=== PATIENT | female | born 1975 | race Two or more races ===

== ENCOUNTER → 2017-07-31 | Outpatient (CLI) | payer BC ==
--- NOTE | 2017-07-31 11:48 | MM ---
Reason for exam: additional evaluation requested from prior study. Last mammogram was performed 3 years and 9 months ago. History: Benign US right guided VAD of the left breast, June 18, 2011. Physical Findings: Nurse did not find any significant physical abnormalities on exam. MG Diagnostic Mammo w CAD PING Bilateral CC and MLO view(s) were taken. Prior study comparison: November 04, 2013, CAD bilateral diagnostic mammogram. July 28, 2012, bilateral screening mammogram free. The breast tissue is heterogeneously dense. This may lower the sensitivity of mammography. There is a mass in the central upper left breast unchanged compared to prior with a biopsy marker. No suspicious abnormality. No significant new findings when compared with previous films. These results were verbally communicated with the patient and result sheet given to the patient on 07/31/17. ASSESSMENT: Benign, BI-RAD 2 RECOMMENDATION: Routine screening mammogram of both breasts in 1 year.
== END ==
LOC: RADMAMWWP 10:27
PROVIDERS: ATTEND Family Medicine
DX: N60.89 Other benign mammary dysplasias of unspecified breast (principal)

== ENCOUNTER → 2019-04-04 | Outpatient (CLI) | payer BC ==
--- NOTE | 2019-04-04 13:54 | MM ---
Reason for exam: screening (asymptomatic). Last mammogram was performed 1 year and 8 months ago. History: Benign US right guided VAD of the left breast, June 18, 2011. Physical Findings: A clinical breast exam by your physician is recommended on an annual basis and results should be correlated with mammographic findings. MG Screening Mammo w CAD Bilateral CC and MLO view(s) were taken. Prior study comparison: July 31, 2017, bilateral MG diagnostic mammo w CAD PING. November 04, 2013, CAD bilateral diagnostic mammogram. The breast tissue is heterogeneously dense. This may lower the sensitivity of mammography. Previous mammotome biopsy in the left breast. There is chronic nodularity in the left breast. There is no discrete abnormality. ASSESSMENT: Benign, BI-RAD 2 RECOMMENDATION: Routine screening mammogram of both breasts in 1 year.
== END | disposition home or self-care (01) ==
LOC: RADMAMWWP 11:41
PROVIDERS: ATTEND Family Medicine
DX: Z12.31 Encounter for screening mammogram for malignant neoplasm of breast (principal)
CPT/HCPCS: 77067

== ENCOUNTER → 2019-04-19 | Outpatient (CLI) | payer BC ==
--- NOTE | 2019-04-20 14:30 | P.ARTDOP ---
Arterial Doppler LOWER EXTREMITY ARTERIAL DOPPLER: DATE OF SERVICE: 04/19/2019 Reason for study: Intermittent leg pain bilaterally. Doppler waveforms: Multiphasic bilaterally throughout. Pulse volume recording: []. Pressure gradients: None. Ankle-brachial indices: Greater than 1 bilaterally. Toe pressures: [] on the right, [] on the left Impression: Normal study.
== END | disposition home or self-care (01) ==
LOC: RADUSWWP 14:18
PROVIDERS: ATTEND Family Medicine
DX: M79.605 Pain in left leg (principal)
CPT/HCPCS: 93922

== ENCOUNTER → 2021-08-20 | Outpatient (CLI) | payer OTHER ==
--- NOTE | 2021-08-20 15:39 | CONS ---
CONSULTATION REASON FOR CONSULTATION: Sleep apnea. This is a 46-year-old female patient who is coming in with a high suspicion for obstructive sleep apnea. The patient thinks that she has it, knowing that she is snoring loudly and has been told that by family members, and she would also wake up choking and gasping for air. Note that this patient was evaluated in the past and she was in our sleep center back in 2012. At that time the patient was diagnosed having no major sleep breathing disorder. A polysomnogram that was done on 09/21/2013 showed an AHI of 0.2. No significant nocturnal oxygen desaturations. No significant sleep arousals or fragmentation. No periodic limb movement activity. The patient underwent a second-day MSLT and the patient had a mean sleep latency of 3.8 minutes with zero REM- onset sleep. At that time she was offered no treatment. Over the past 8 years, she has gained a significant amount of weight, probably on the order of 22 pounds. Currently she is up to 215. 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 She feels like she has to take a short nap prior to dinner to get herself refreshed. She has excessive fatigue and sleepiness. She wakes up choking and gasping for air. She goes to bed between 10:30 p.m. and 11:30 p.m. and wakes up at 6:15 a.m. in the morning. On weekends she sleeps between midnight and 7:00 in the morning. She is averaging around 7 hours of sleep. It takes her a few minutes to fall asleep. She wakes up a few times in the middle of the night to use the bathroom and urinate. She sleeps on her side and she is a nose breather. She is interested in CPAP therapy if diagnosis of sleep apnea is confirmed. PAST MEDICAL HISTORY: Obesity with interval weight gain. BMI is up to 42. SURGICAL HISTORY: Surgical history includes tubal ligation and cholecystectomy. DRUG ALLERGIES: NOT KNOWN. SOCIAL HISTORY: The patient is a lifetime nonsmoker. No history of alcoholism. No history of IV drugs. She drinks one cup of coffee in the morning. FAMILY HISTORY: Positive for coronary artery disease, hypertension, hyperlipidemia, asthma and diabetes mellitus. Her father of complications of diabetes mellitus and he was hypertensive and had diabetes. Her mother has MARLO, diabetes mellitus, hyperlipidemia, Parkinson's disease and history of tremors. REVIEW OF SYSTEMS: Fourteen-point review of system was done. Positive findings were all mentioned in the history of present illness. Her main issue remains increased fatigue, tiredness and sleepiness during the day. On today's evaluation it was noted that her blood pressure was quite high. She denies having any headaches, chest pain, dizziness, numbness or tingling in her extremities. PHYSICAL EXAMINATION: VITAL SIGNS: BP is 161/102. This needs to be rechecked at home, knowing that it may be an abnormal reading, as the cuff was not fitting her arm. Pulse 70, respirations 16, temperature 97.4, saturation 99% on room air. Height is 4 feet 11 inches, weight 215, BMI 42.6. Neck size is 15-1/2 inches. Dutton score is 6. GENERAL APPEARANCE: Calm, comfortable. HEAD: Atraumatic, normocephalic. Neck is supple. No JVD. No goiter or neck masses. Mallampati class IV. LUNGS: Clear to auscultation. Heart sounds are regular rate and rhythm. Normal S1, S2. No S3, S4. No murmurs. ABDOMEN: Soft, nontender. No organomegaly. No direct tenderness, rebound tenderness or guarding. EXTREMITIES: Trace edema. No cyanosis or clubbing. IMPRESSION: 1. Chronic hypersomnia, under investigation. Previous evaluation that was done in 2012 showed no evidence of any sleep breathing disorder. Nevertheless, the patient continues to have an elevated Dutton score. Her mean sleep latency test that was done back in 2012 showed a short mean sleep latency of 1.8 minutes with negative REM-onset sleep. As such, she has gained around 22 pounds over the past 8 years and she is coming in for reevaluation. My overall clinical suspicion for obstructive sleep apnea is high, as the patient has become much more symptomatic. 2. Obesity with a BMI of 42.6 and interval 22-pound weight gain over the past 8 years. 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 PLAN: 1. Encourage weight loss. The patient was asked to get involved in a strict diet in an attempt to lose some of the weight that she has accumulated over the years. 2. Avoid driving, especially when feeling drowsy or sleepy. 3. Daytime stimulation with some caffeine. 4. Will proceed with a polysomnogram with a high clinical suspicion for underlying obstructive sleep apnea. Further recommendations are to follow based on the results. It was noted that the blood pressure was elevated today in the clinic. I asked the patient to re-measure the blood pressure at her doctor's office or at home and confirm the findings. She thinks that this was an erroneous reading. This is something that we need to follow up in the future. MMODL / IJN: [id number] /
== END ==
LOC: SLEEP 14:07
PROVIDERS: ATTEND Internal Medicine Critical Care Medicine
DX: G47.8 Other sleep disorders (principal); E66.9 Obesity, unspecified; Z68.41 Body mass index [BMI] 40.0-44.9, adult
CPT/HCPCS: 99211

== ENCOUNTER 2021-09-23 00:41 | Emergency (ER) | payer OTHER ==
--- NOTE | 2021-09-23 01:27 | XR ---
EXAMINATION TYPE: XR KUB DATE OF EXAM: 09/23/2021 COMPARISON: NONE HISTORY: Constipation TECHNIQUE: 2 views FINDINGS: Bowel gas pattern is normal. There is no sign of intestinal obstruction or pneumoperitoneum . Fecal pattern is normal. There are clips from cholecystectomy. There is no evidence of a mass. Ther e are no pathologic calcifications over the kidneys. IMPRESSION: Nonacute abdomen.
--- NOTE | 2021-09-23 01:46 | ED ---
Abdominal Pain HPI - General Chief Complaint: Abdominal Pain Stated Complaint: constipation Time Seen by Provider: 09/23/21 00:55 Source: patient Mode of arrival: ambulatory Limitations: no limitations - History of Present Illness Initial Comments: 46 year-old female patient comes in with complaint of rectal pain and constipation. States her last bowel movement was early yesterday. She states it was small and hard. States she feels like her rectum is full and she is unable to evacuate her bowels. States she has had some liquid stool but no solid. She is passing gas. Denies any abdominal pain. States all of her pain is in her rectal area. States she is urinating without difficulty. Denies any fever or chills. She was started on a new blood pressure medication but no other new medications. Does not take any pain medication. Has not changed her diet. - Related Data Home Medications Medication Instructions Recorded Confirmed Diclofenac Sodium [Voltaren] 25 mg PO BID 10/05/14 10/05/14 Oxybutynin Chloride [Ditropan] 5 mg PO BID 10/05/14 10/05/14 Allergies Allergy/AdvReac Type Severity Reaction Status Date / Time No Known Allergies Allergy Verified 09/23/21 00:52 Review of Systems ROS Statement: Those systems with pertinent positive or pertinent negative responses have been documented in the HPI. ROS Other: All systems not noted in ROS Statement are negative. Past Medical History Additional Past Medical History / Comment(s): arthritis, bladder inicontinence History of Any Multi-Drug Resistant Organisms: None Reported Past Surgical History: Cholecystectomy, Tubal Ligation Past Psychological History: No Psychological Hx Reported Smoking Status: Never smoker Past Alcohol Use History: None Reported Past Drug Use History: None Reported General Exam Limitations: no limitations General appearance: alert, in no apparent distress, other (This is a well- developed, well-nourished adult female in no acute distress.) ENT exam: Present: normal exam, normal oropharynx, mucous membranes moist Respiratory exam: Present: normal lung sounds bilaterally. Absent: respiratory distress, wheezes, rales, rhonchi, stridor Cardiovascular Exam: Present: regular rate, normal rhythm, normal heart sounds. Absent: systolic murmur, diastolic murmur, rubs, gallop, clicks GI/Abdominal exam: Present: soft, normal bowel sounds. Absent: distended, tenderness, guarding, rebound, rigid Neurological exam: Present: alert, oriented X3, CN II-XII intact Psychiatric exam: Present: normal affect, normal mood Skin exam: Present: warm, dry, intact, normal color. Absent: rash Course Vital Signs 09/23/21 00:50 Temperature 98.3 F Pulse Rate 93 Respiratory 20 Rate Blood Pressure 166/82 O2 Sat by Pulse 97 Oximetry Medical Decision Making - Medical Decision Making 46 year-old female patient presents to the emergency department reporting constipation and rectal pain. Physical exam revealed soft non-tender abdomen. KUB did show fecal burden. No obstruction. Patient was given milk and molasses enema. She did have large bowel movement. Upon re-evaluation she is resting comfortably in bed. She states she does feel much better. She feels comfortable being discharged home. She is instructed to follow-up with her primary care physician for recheck in 1-2 days. Return parameters were discussed in detail. She verbalizes understanding and agrees with this plan. My attending is Dr. Jones. - Radiology Data Radiology results: report reviewed, image reviewed 2 views of the abdomen are obtained. Report was reviewed in its entirety. Impression by Dr. Mcfarland shows nonacute abdomen. Disposition Clinical Impression: Rectal pain Disposition: HOME SELF-CARE Condition: Good Instructions (If sedation given, give patient instructions): Constipation (ED), High Fiber Diet (ED) Additional Instructions: Increase fluids. Follow-up with your primary care physician for recheck in 1-2 days. Return for any new, worsening, or concerning symptoms. Is patient prescribed a controlled substance at d/c from ED?: No Referrals: Mary Marks MD [Primary Care Provider] - 1-2 days Time of Disposition: 02:39
[2021-09-23 02:50] VITALS: BP 142/84; PULSE 87; RESP 18; TEMP 98.2
== END 2021-09-23 02:50 | disposition home or self-care (01) ==
LOC: EC 00:41
DX: K62.89 Other specified diseases of anus and rectum (principal); Z90.49 Acquired absence of other specified parts of digestive tract; Z98.51 Tubal ligation status
CPT/HCPCS: 74018; 99283

== ENCOUNTER → 2023-01-08 | Outpatient (CLI) | payer BC ==
--- NOTE | 2023-01-08 14:03 | US ---
EXAMINATION TYPE: US abdomen complete DATE OF EXAM: 01/08/2023 COMPARISON: NONE CLINICAL HISTORY: 47-year-old female R10.31 RLQ PAIN. Hx cholecystectomy. RLQ pain. TECHNIQUE: Multiple sonographic images of the abdomen are obtained. FINDINGS: EXAM MEASUREMENTS: Liver Length: 17.8 cm Gallbladder: Surgically absent CBD: 0.42 cm Spleen: 10.0 cm Right Kidney: 11.3 x 5.4 x 4.4 cm Left Kidney: 12.1 x 5.2 x 5.8 cm PIPE OR STEAM FITTER FURNACE INSTALLER NOTES: Limited due to gas and patient body habitus. Pancreas: Only portions of the pancreatic head and neck are seen. Remainder is obscured by bowel gas shadowing. Liver: Limited. Borderline enlarged with increased echogenicity. No focal lesion identified. Gallbladder: Surgically absent Evidence for sonographic Murrell's sign: No CBD: Portions seen appear wnl Spleen: wnl Right Kidney: Mild pelviectasis. Left Kidney: No hydronephrosis or masses seen Upper IVC: wnl Abd Aorta: Very limited. Mid aorta not seen. Portions of proximal aorta appear ectatic measuring 2.7 cm AP. Iliacs were obscured. IMPRESSION: 1. Borderline hepatomegaly with at least moderate hepatic steatosis. Correlate with LFTs, liver naomi col, and patient risk factors. 2. Status post cholecystectomy. No biliary ductal dilatation. 3. Mild right-sided pelviectasis versus extrarenal pelvis. No calyceal dilatation to suggest hydronep hrosis. 4. Segments of ectasia of the abdominal aorta to 2.7 cm.
--- NOTE | 2023-01-08 15:23 | US ---
EXAMINATION TYPE: US pelvic complete DATE OF EXAM: 01/08/2023 COMPARISON: NONE CLINICAL HISTORY: 47-year-old female R10.31 RLQ PAIN. RLQ pain. Hx tubal ligation. . TECHNIQUE: Transabdominal sonographic images of the pelvis were acquired. Transvaginal sonographic i mages were medically necessary to better assess the following anatomy: Ovaries, endometrium Date of LMP: 12/11/2022 FINDINGS: EXAM MEASUREMENTS: Uterus: 8.7 x 5.7 x 3.4 cm Endometrial Stripe: Measured at 0.33 cm Right Ovary: 2.3 x 1.5 x 1.1 cm Left Ovary: Obscured 1. Uterus: Anteverted. Very heterogeneous myometrium. Limited. Anechoic area seen anteriorly deep along the myometrium: 0.6 x 0.6 x 0.3 cm. 2. Endometrium: Somewhat indistinct. Measured at 0.33 cm. 3. Right Ovary: Hyperechoic focus seen: 0.2 x 0.2 x 0.1 cm., Nonspecific calcification 4. Left Ovary: Obscured 5. Bilateral Adnexa: Appear wnl 6. Posterior cul-de-sac: Trace free fluid IMPRESSION: 1. Heterogeneous myometrium. There is a small 6 mm anterior myometrial cyst also present. Findings ar e nonspecific but may be seen with adenomyosis. Clinically correlate. 2. Unable to visualize the left ovary. 3. Trace cul-de-sac free fluid likely physiologic.
== END | disposition home or self-care (01) ==
LOC: RADUSWWP 09:52
PROVIDERS: ATTEND Family Medicine
DX: K76.0 Fatty (change of) liver, not elsewhere classified (principal); I77.811 Abdominal aortic ectasia; N85.8 Other specified noninflammatory disorders of uterus; Z98.51 Tubal ligation status; Z90.49 Acquired absence of other specified parts of digestive tract
CPT/HCPCS: 76700; 76830; 76856

== ENCOUNTER → 2023-02-19 | Outpatient (CLI) | payer BC ==
--- NOTE | 2023-02-19 17:38 | P.SLEEP ---
History of Present Illness DATE: 02/19/2023 CONSULTATION/NEW PATIENT EVALUATION HISTORY OF PRESENT ILLNESS/SLEEP-WAKE EVALUATION: 47-year-old lady had been ev aluated in the sleep center for possible obstructive sleep apnea hypopnea syndrome. Mild abnormalities of respiration by results of home sleep apnea test in 2020. SLEEP SCHEDULE: Usually sleep schedule from 10 PM to 4 AM on weekdays and from 11 PM to 9 AM on weekend. FALLING ASLEEP: No problems with falling asleep, although patient has TV set and bedroom. DURING SLEEP: Patient wakes up from sleep up to 3 times with up to 2 episodes of nocturia. Patient snores, has episodes of stop breathing during the sleep. No history of hypnogogical hallucinations, sleep paralysis, or cataplexy. DURING THE DAY/WAKE STATE: In the morning patient wake up tired, has problems with memory, concentration, irritability. Andrews sleepiness scale is significantly increased to 16. Patient may take naps at 5 PM. PAST MEDICAL HISTORY: Hypertension, acid reflux, osteoarthritis. PAST SURGICAL HISTORY: Cholecystectomy, tubal ligation. MEDICATIONS: Losartan 75 mg once a day, omeprazole 20 mg twice a day, baclofen 10 mg once a day, diclofenac 75 mg twice a day. SOCIAL HISTORY: Negative for smoking or using alcohol. FAMILY HISTORY: Hypertension, coronary artery disease, asthma, diabetes. REVIEW OF SYSTEMS: Snoring, multiple awakenings from sleep, sleepiness during the day. No fevers. No double vision. No recent chest pain. No shortness of breath. No abdominal pain. No bleeding episodes. No blood in urine. No seizure episodes. PHYSICAL EXAMINATION: GENERAL: A pleasant patient without any distress. VITAL SIGNS: BP 141/83, HR 87, RR 12, weight 219 pounds, height 4 foot 11 inches, body mass index 44.6. HEENT: PERRLA, EOMI. Evaluation of oropharynx showed tongue protrudes midline, low position of soft palate Mallampati 3-4. NECK: Supple. No JVD. Thyroid is not palpable. 15.5 inches in circumference. LUNGS: Clear to percussion and to auscultation. Good air exchange. No wheezing or rhonchi. HEART: S1, S2 regular. No murmurs, gallops or rubs. ABDOMEN: Soft and nontender. Bowel sounds are present. No organomegaly appreciated. EXTREMITIES: No clubbing or cyanosis. END STAPLER: Awake, alert, and oriented x3. Cranial nerves 2 to 7 intact. There is no fasciculation or atrophy noted. No focal deficits observed. ASSESSMENT: 1. Loud snoring, witnessed episodes of stop breathing during sleep, low position of soft palate Mallampati 34, significant sleepiness Andrews Sleepiness Scale is 16. Obstructive sleep apnea hypopnea syndrome. 2. History of significant excessive daytime sleepiness documented in 2013 by multiple sleep latency test. Mean sleep latency 3.8 minutes. Presently Andrews Sleepiness Scale is 16. Differential diagnosis would include narcolepsy and hypersomnia. 3. Obesity body mass index 44.6. 4. Hypertension. 5 acid reflux. 6 . Osteoarthritis. 7. Status post cholecystectomy. 8. Status post tubal ligation. PLAN: 1. Polysomnography for evaluation of patient's breathing during sleep. 2. CPAP/BiPAP titration if sleep study confirms obstructive sleep apnea- hypopnea syndrome. 3. Preferable position during sleep on the side. 4. No driving if patient feels any sleepiness. Patient is aware of civil and criminal liability for unsafe driving. 5. Sleep hygiene with regular sleep time for at least 7.5-8 hours. 6. Watching and losing weight. Thank you very much for referring this patient for consultation. Sincerely, Juvencio Milton MD, PhD, FAASM. Diplomat of [place] [employer], Sleep Medicine Board by [employer] [employer] [employer] [facility] [place] Past Medical History Additional Past Medical History / Comment(s): arthritis, bladder inicontinence History of Any Multi-Drug Resistant Organisms: None Reported Past Surgical History: Cholecystectomy, Tubal Ligation Past Psychological History: No Psychological Hx Reported Smoking Status: Never smoker Past Alcohol Use History: None Reported Past Drug Use History: None Reported Medications and Allergies Home Medications Medication Instructions Recorded Confirmed Type Diclofenac Sodium [Voltaren] 25 mg PO BID 10/05/14 10/05/14 History Oxybutynin Chloride [Ditropan] 5 mg PO BID 10/05/14 10/05/14 History Allergies Allergy/AdvReac Type Severity Reaction Status Date / Time No Known Allergies Allergy Verified 09/23/21 00:52 Sleep Note - Sleep Note Sleep Note: Temperature: Pulse Rate: Respiratory Rate: Blood Pressure: SpO2: Height: Weight: BMI: Neck Circumference:
== END ==
LOC: SLEEP 14:57
PROVIDERS: ATTEND Internal Medicine
DX: G47.33 Obstructive sleep apnea (adult) (pediatric) (principal); G47.419 Narcolepsy without cataplexy; E66.9 Obesity, unspecified; Z68.41 Body mass index [BMI] 40.0-44.9, adult; K21.9 Gastro-esophageal reflux disease without esophagitis; M19.90 Unspecified osteoarthritis, unspecified site; Z98.890 Other specified postprocedural states; I10 Essential (primary) hypertension; Z99.89 Dependence on other enabling machines and devices
CPT/HCPCS: 99211

== ENCOUNTER 2023-03-25 19:42 | Outpatient (CLI) | payer BC | END 2023-03-26 23:59 | LOC: 3 N SLEEP 19:42 | PROVIDERS: ATTEND Internal Medicine | DX: G47.33 Obstructive sleep apnea (adult) (pediatric) (principal); I10 Essential (primary) hypertension; K21.9 Gastro-esophageal reflux disease without esophagitis; M19.90 Unspecified osteoarthritis, unspecified site; E66.9 Obesity, unspecified; Z68.41 Body mass index [BMI] 40.0-44.9, adult; Z98.890 Other specified postprocedural states; Z99.89 Dependence on other enabling machines and devices | CPT/HCPCS: 95810 ==

== ENCOUNTER → 2023-12-15 | Outpatient (CLI) | payer OTHER ==
--- NOTE | 2023-12-15 17:35 | XR ---
EXAMINATION TYPE: XR knee limited LT DATE OF EXAM: 12/15/2023 5:06 PM CLINICAL INDICATION:Female, 48 years old with history of [id number]; COMPARISON: None. TECHNIQUE: XR knee limited LT; examined in Frontal, lateral and oblique projections. FINDINGS: No evidence of any acute osseous pathology, soft tissue swelling, or joint effusion is no milind. Tricompartmental osteophyte formation involving the femoral condyles, tibial plateau and patella . Mild joint space narrowing. IMPRESSION: 1. No acute osseous pathology. 2. Mild tricompartmental osteoarthritic changes.
== END | disposition home or self-care (01) ==
LOC: RADXRMAIN 16:10
PROVIDERS: ATTEND Nurse Practitioner Family
DX: M17.12 Unilateral primary osteoarthritis, left knee (principal)

== ENCOUNTER 2024-01-07 12:38 | Emergency (ER) | payer OTHER ==
[2024-01-07 13:18] VITALS: RESP 18; TEMP 98.1
--- NOTE | 2024-01-07 13:35 | ED ---
General Adult HPI - General Chief complaint: Extremity Injury, Lower Stated complaint: left knee pain Time Seen by Provider: 01/07/24 12:54 Source: patient Mode of arrival: ambulatory Limitations: no limitations - History of Present Illness Initial comments: Dictation was produced using [employer] dictation software. please excuse any grammatical, word or spelling errors. Chief Complaint: 48-year-old obese female presents emergency department left knee pain History of Present Illness: Patient is a 48-year-old obese female presents emergency department for acute on chronic left knee pain. She was evaluated by other medical professional and was given prednisone for her knee for chronic pain that started about a month ago. States that the pain kind of improved however over the last 48 hours she states that her pain got worse. States it is worse whenever she tries to bear weight. She does complain of some increasing varicosities in the back of her calf and knee. Denies any chest pain or shortness of breath. The ROS documented in this emergency department record has been reviewed and confirmed by me. Those systems with pertinent positive or negative responses have been documented in the HPI. All other systems are other negative and/or noncontributory. - Related Data Home Medications Medication Instructions Recorded Confirmed Diclofenac Sodium [Voltaren] 25 mg PO BID 10/05/14 10/05/14 oxyBUTYnin chloride [Ditropan] 5 mg PO BID 10/05/14 10/05/14 Previous Rx's Medication Instructions Recorded HYDROcodone/APAP 5-325MG [[place] 1 tab PO Q6HR PRN 3 Days #12 tab 01/07/24 5-325] Allergies Allergy/AdvReac Type Severity Reaction Status Date / Time No Known Allergies Allergy Verified 01/07/24 12:55 Review of Systems ROS Statement: Those systems with pertinent positive or pertinent negative responses have been documented in the HPI. ROS Other: All systems not noted in ROS Statement are negative. Past Medical History Additional Past Medical History / Comment(s): arthritis, bladder inicontinence History of Any Multi-Drug Resistant Organisms: None Reported Past Surgical History: Cholecystectomy, Tubal Ligation Past Psychological History: No Psychological Hx Reported Smoking Status: Never smoker Past Alcohol Use History: None Reported Past Drug Use History: None Reported General Exam - General Exam Comments Initial Comments: General: Well-appearing, nontoxic, no acute distress. Head: Normocephalic, atraumatic Eyes: PERRLA, EOMI ENT: Airway patent Chest: Nonlabored breathing Skin: No visual rash, normal skin tone Neuro: Alert and oriented 3 Musculoskeletal: No gross abnormalities Left knee: No erythema, no effusion, passive range of motion intact Limitations: no limitations Course Vital Signs 01/07/24 01/07/24 12:53 13:26 Temperature 98.1 F Pulse Rate 92 86 Respiratory 18 18 Rate Blood Pressure 187/112 146/85 O2 Sat by Pulse 100 Oximetry Medical Decision Making - Medical Decision Making Was pt. sent in by a medical professional or institution (, URIEL, FX ARTIST, urgent care, hospital, or halfway...) When possible be specific @ -No Did you speak to anyone other than the patient for history (EMS, parent, family, police, friend...)? What history was obtained from this source @ -No Did you review nursing and triage notes (agree or disagree)? Why? @ -I reviewed and agree with nursing and triage notes Were old charts reviewed (outside hosp., previous admission, EMS record, old EKG, old radiological studies, urgent care reports/EKG's, halfway records)? Report findings @ -No old charts were reviewed Differential Diagnosis (chest pain, altered mental status, abdominal pain women, abdominal pain men, vaginal bleeding, musculoskeletal, weakness, fever, dyspnea, syncope, headache, dizziness, GI bleed, back pain, seizure, CVA, palpatations, mental health)? @ -Not applicable EKG interpreted by me (3pts min.). @ -None done X-rays interpreted by me (1pt min.). @ -X-ray of the knee shows no acute fracture CT interpreted by me (1pt min.). @ -None done U/S interpreted by me (1pt. min.). @ -Ultrasound of the lower extremity shows no DVT What testing was considered but not performed or refused? (CT, X-rays, U/S, labs)? Why? @ -None What meds were considered but not given or refused? Why? @ -None Did you discuss the management of the patient with other professionals (professionals i.e. URIEL Lopez, FX ARTIST, lab, RT, psych nurse, social work administrator, director of early childhood education, teacher, sales and service officer, binder caser)? Give summary @ -No Was smoking cessation discussed for >3mins.? @ -No Was critical care preformed (if so, how long)? @ -No Were there social determinants of health that impacted care today? How? (Homelessness, low income, unemployed, alcoholism, drug addiction, transportation, low edu. Level, literacy, decrease access to med. care, fdc, rehab)? @ -No Was there de-escalation of care discussed even if they declined (Discuss DNR or withdrawal of care, Hospice)? DNR status @ -No What co-morbidities impacted this encounter? (DM, HTN, Smoking, COPD, CAD, Cancer, CVA, ARF, Chemo, Hep., AIDS, mental health diagnosis, sleep apnea, morbid obesity)? @ -None Was patient admitted / discharged? Hospital course, mention meds given and route, prescriptions, significant lab abnormalities, going to OR and other pertinent info. @ -48-year-old female presents with left knee pain. Vital signs upon arrival are within acceptable limits. Patient's pain is musculoskeletal. No concern for septic arthritis. X-ray shows degenerative changes especially in the medial compartment. No DVT. Patient given pain medication and referral to knee specialist Undiagnosed new problem with uncertain prognosis? @ -No Drug Therapy requiring intensive monitoring for toxicity (Heparin, Nitro, Insulin, Cardizem)? @ -No Were any procedures done? @ -No Diagnosis/symptom? Acute, or Chronic, or Acute on Chronic? Uncomplicated (without systemic symptoms) or Complicated (systemic symptoms)? @ -Knee pain Side effects of treatment? @ -No Exacerbation, Progression, or Severe Exacerbation? @ -No Poses a threat to life or bodily function? How? (Chest pain, [place], [place], pneumonia, PE, COPD, DKA, ARF, appy, cholecystitis, CVA, Diverticulitis, Homicidal, Suicidal, threat to staff... and all critical care pts) @ -yes Disposition Clinical Impression: Knee pain Disposition: HOME SELF-CARE Condition: Good Instructions (If sedation given, give patient instructions): Knee Pain (ED) Prescriptions: HYDROcodone/APAP 5-325MG [[place] 5-325] 1 tab PO Q6HR PRN 3 Days #12 tab PRN Reason: Severe Pain Is patient prescribed a controlled substance at d/c from ED?: Yes If prescribed controlled substance>3 days was MAPS reviewed?: Prescribed <3 Days Referrals: Robert España MD [Medical Doctor] - 1-2 days Time of Disposition: 14:45
--- NOTE | 2024-01-07 14:06 | US ---
EXAMINATION TYPE: US venous doppler duplex LE LT DATE OF EXAM: 01/07/2024 1:18 PM COMPARISON: NONE CLINICAL INDICATION: Female, 48 years old with history of pain; Pt states left knee pain SIDE PERFORMED: Left TECHNIQUE: The lower extremity deep venous system is examined utilizing real time linear array sonog quinn with graded compression, doppler sonography and color-flow sonography. VESSELS IMAGED: Common Femoral Vein Deep Femoral Vein Greater Saphenous Vein * Femoral Vein Popliteal Vein Small Saphenous Vein * Proximal Calf Veins (* superficial vessels) Left Leg: Negative for DVT IMPRESSION: Grayscale, color doppler, spectral doppler imaging performed of the deep veins of the lo wer extremities. There is normal flow, compressibility, vascular waveforms.
--- NOTE | 2024-01-07 14:35 | XR ---
EXAMINATION TYPE: XR knee 4V LT DATE OF EXAM: 01/07/2024 COMPARISON: NONE HISTORY: Pain TECHNIQUE: Three views are submitted. FINDINGS: Mild osteoarthritis with marginal spurring but no erosions. Small suprapatellar bursal fluid collecti on. Mild cortical thickening in the medial distal femoral diaphysis. Stable from prior exam.. Osseou s structures are intact. No acute fracture seen. IMPRESSION: 1. No acute fracture or dislocation. 2. Mild osteoarthritis. 3. Cortical thickening along the medial margin of the distal diaphysis femur appears stable. If pain is located in this region consider bone scan.
[2024-01-07] MEDS: MORPHINE SULFATE 4 MG/ML SYRINGE IM STA (14:43)
[2024-01-07 15:10] VITALS: BP 126/76; PULSE 66
== END 2024-01-07 15:05 | disposition home or self-care (01) ==
LOC: EC 12:38
DX: M25.562 Pain in left knee (principal)
CPT/HCPCS: 73564; 93971; 99284; 96372; J2270

== ENCOUNTER → 2024-01-14 | Outpatient (CLI) | payer OTHER ==
[2024-01-14 17:14] VITALS: BP 158/96; PULSE 69; RESP 12; TEMP 98.4
--- NOTE | 2024-01-14 18:00 | P.PN ---
Subjective DATE: 01/14/2024 FOLLOW UP VISIT. Patient with obstructive sleep apnea hypopnea syndrome return to sleep center for follow-up visit. Information from previous visit have been reviewed. Patient is using PAP equipment every night for the whole night, getting PAP supplies in time. The patient does not have significant problems with the mask, PAP unit and humidification. Otis sleepiness scale is 6, which is normal. I checked information from PAP unit. PAP unit pressure 5-15, average 11 cm H2O. Usage is 100% for more then 4 hours, average 4 hours per night. Leak is 12 l/m, which is in acceptable range. Apnea Hypopnea Index is 0.2, which is perfect. Patient reported that rarely she still has episodes of choking while using CPAP equipment. Machine has autoramp, starting at the pressure 4 cm of water. MEDICATIONS:1. Cozaar 75 mg once a day 2. Motrin 600 mg 3 times a day 3. Voltaren 75 mg twice a day 4. Solifenacin once a day During physical exam: GENERAL: A pleasant patient without any distress. VITAL SIGNS: Please see below, body mass index 43.2. HEENT: PERRLA, EOMI.low position of soft palate, Mallapati 3-4 . NECK: Supple. No JVD. LUNGS: Clear to percussion and to auscultation. Good air exchange. No wheezing or rhonchi. HEART: S1, S2 regular. ABDOMEN: Soft and nontender, slightly obese EXTREMITIES: No clubbing or cyanosis. TOURS HOSTESS: Awake, alert, and oriented x3. No focal deficit. Impressions: 1. Obstructive sleep apnea-hypopnea syndrome. Patient demonstrated great compliance with treatment, benefiting from treatment. 2. Obesity, BMI 43.2, patient lost 7 pounds comparing with previous visit. 3. Hypertension. 4. Acid reflux. 5. History of osteoarthritis. 6. Status post tubal ligation. 7. Status post cholecystectomy. I changed parameters in CPAP unit. Pressure was adjusted to the range 6-17. Autoramp was changed to regular ramp 15 minutes starting from pressure 6 cm of water. Plan: 1. Continue using PAP equipment every night for the whole night. 2. To change air filter at least 1-2 times per month. 3. PAP unit should stay lower then position of the head. 4. Advised patient to remove all remaining water from humidifier canister daily and make it dry after each usage. Refill canister with fresh distilled water before each usage. 5. Sleep hygiene with regular time in bed for at least 8 hours. 6. Precautions related to driving. No driving if feel any sleepiness. 7. I will maintain prescription for PAP supplies including mask, tube, filters. 8. Follow up visit in 6 months or earlier if patient has any problems. 9. Watching and continue losing weight. Thank you very much for allowing me to participate in the management of your patient. Juvencio Milton MD, PhD, FAASM. Diplomat of [place] [employer], Sleep Medicine Board by [place] [employer] Car Supervisor of [facility] [place] Objective - Vital Signs Vital signs: Vital Signs Temp 98.4 F 01/14/24 16:49 Pulse 69 01/14/24 16:49 Resp 12 01/14/24 16:49 BP 158/96 01/14/24 16:49 Pulse Ox 96 01/14/24 16:49 FiO2 Intake & Output 01/13/24 01/14/24 01/14/24 18:59 06:59 18:59 Weight 97.069 kg
== END ==
LOC: 3 N SLEEP 16:29
PROVIDERS: ATTEND Internal Medicine
DX: G47.33 Obstructive sleep apnea (adult) (pediatric) (principal); E66.9 Obesity, unspecified; I10 Essential (primary) hypertension; K21.9 Gastro-esophageal reflux disease without esophagitis; Z87.39 Personal history of other diseases of the musculoskeletal system and connective tissue; Z98.51 Tubal ligation status; Z90.49 Acquired absence of other specified parts of digestive tract; Z79.899 Other long term (current) drug therapy; Z68.41 Body mass index [BMI] 40.0-44.9, adult; Z99.89 Dependence on other enabling machines and devices
CPT/HCPCS: 99212

== ENCOUNTER → 2024-02-16 | Outpatient (CLI) | payer OTHER ==
--- NOTE | 2024-02-16 12:01 | MR ---
EXAMINATION TYPE: MR knee LT wo con DATE OF EXAM: 02/16/2024 COMPARISON: Left knee radiograph 01/15/2024 HISTORY: Left knee pain x 2 mos, no trauma. TECHNIQUE: Multiplanar, multisequence imaging of the left knee is performed without contrast. FINDINGS: Medial meniscus: Radial tear of the posterior horn medial meniscus. Superimposed nondisplaced horizon smita flap tear of the medial meniscus body, contacting the femoral articular surface. Associated migel eniscal cyst posteriorly measuring 28 x 12 x 22 mm. Medial compartment cartilage: High-grade thinning of the medial compartment articular cartilage. Medial collateral ligament: Intact. Lateral meniscus: Intact. Lateral compartment cartilage: Partial-thickness thinning of the lateral compartment articular cartil age. Lateral collateral ligament: Intact. Patellofemoral alignment: Normal. Patellofemoral compartment cartilage: Partial-thickness thinning of the patellofemoral cartilage. Extensor mechanism: Normal. Anterior cruciate ligament: Linear increased intrasubstance signal oriented longitudinally involving the proximal half of the ACL. Posterior cruciate ligament: Intact. Bone marrow: Nondepressed subchondral insufficiency fracture of the medial femoral condyle with assoc iated subjacent bone marrow edema. Soft tissues: Normal. No joint effusion. No Winter's cyst. Neurovascular: Normal. IMPRESSION: 1. Medial meniscus radial tear and nondisplaced horizontal flap tear. Associated parameniscal cyst po sterior medially. 2. Tricompartmental osteoarthrosis, pronounced in the medial compartment. 3. Nondepressed subchondral insufficiency fracture medial tibial plateau. 4. Linear fluid signal longitudinally along the intrasubstance of the proximal ACL, may represent con genital variant versus intrasubstance tear of indeterminate age.
== END | disposition home or self-care (01) ==
LOC: RADMRIMAIN 06:38
PROVIDERS: ATTEND Orthopaedic Surgery
DX: S83.242A Other tear of medial meniscus, current injury, left knee, initial encounter (principal); M17.12 Unilateral primary osteoarthritis, left knee; X58.XXXA Exposure to other specified factors, initial encounter

== ENCOUNTER → 2024-03-08 | Outpatient (CLI) | payer OTHER ==
[2024-03-09 05:25] LABS: Anion Gap 11.4 mmol/L (4.00-12.00); Carbon Dioxide 26.6 mmol/L (21.6-31.8); Potassium 4.4 mmol/L (3.5-5.5)
[2024-03-09 05:36] LABS: Basophils # (A) 0.05 X 10*3/uL (0.00-0.10); Basophils % (A) 0.6 %; Eosinophils % (A) 2.3 %; HCT 38.6 % (37.2-46.3); HGB 12.4 g/dL (12.0-15.0); Lymphocytes % (A) 22.9 %; MCH 29.5 pg (27.0-32.0); MCHC 32.1 g/dL (32.0-37.0); MCV 91.7 FL (80.0-97.0); Mean Platelet Volume 11.9 FL (9.5-12.2); Monocytes # (A) 0.51 X 10*3/uL (0.20-1.00); Monocytes % (A) 5.8 %; NRBC Per 100 WBC 0 X 10*3/uL (0.00-0.01); Neutrophils # (A) 5.91 X 10*3/uL (1.80-7.70); Neutrophils % (A) 67.6 %; Platelet Count 277 X 10*3/uL (140-440); RBC 4.21 X 10*6/uL (4.10-5.20); RDW 13.8 % (11.5-14.5); WBC 8.74 X 10*3/uL (4.50-10.00)
== END | disposition home or self-care (01) ==
LOC: LABWHC1 14:21
PROVIDERS: ATTEND Orthopaedic Surgery
DX: Z01.818 Encounter for other preprocedural examination (principal); I49.1 Atrial premature depolarization; M23.92 Unspecified internal derangement of left knee
CPT/HCPCS: 36415; 80051; 85025; 93005

== ENCOUNTER 2024-03-16 09:32 | Day surgery (SDC) | payer OTHER ==
--- NOTE | 2024-03-15 13:39 | HP ---
HISTORY AND PHYSICAL DATE OF SURGERY: 03/16/2024. HISTORY OF PRESENT ILLNESS: Kady Berg is a 48-year-old patient seen with progressive left knee pain. We discussed options regarding treatment. She elected to proceed with left knee arthroscopy. Consent was obtained. PAST MEDICAL HISTORY: Hypertension, gastroesophageal reflux disease. PAST SURGICAL HISTORY: Cholecystectomy. DAILY MEDICATIONS: 1. Cozaar. 2. Diclofenac. 3. Prilosec. ALLERGIES: None. SOCIAL HISTORY: She denies current tobacco use. PHYSICAL EVALUATION OF THE LEFT KNEE: Her range of motion is 0 to 125 degrees. There is a mild effusion present. She has tenderness along the medial and lateral joint lines with positive medial Bere's and positive lateral Bere's. Ligaments stable. Hip rotation without pain. Distal neurovascular exam is intact. IMAGING STUDIES: Radiographs of the left knee revealed [id number] osteoarthritic changes as well as an effusion. MRI of left knee revealed medial meniscal tear. IMPRESSION: 1. Internal derangement of left knee with medial meniscal tear. 2. Hypertension. PLAN: Left knee arthroscopy with partial medial meniscectomy and debridement. . MMODL / IJN: [id number] /
[~2024-03-16 09:32] MED LIST: HYDROmorphone 0.5 MG/0.5 ML SYRINGE IVP PRN; LIDOCAINE 1% (10MG/ML) FOR IV START INTRADERMA PRN; METOCLOPRAMIDE 5 MG/ML 2 ML VIAL IVP PRN
[2024-03-16] MEDS: LACTATED RINGERS 1,000 ML IV SCH (09:40)
[2024-03-16] MEDS: DEXAMETHASONE SOD PHOSPHATE 4 MG/ML 1 ML VIAL IV ONE (09:58)
[2024-03-16] MEDS: ONDANSETRON 4 MG/2 ML VIAL IVP ONE (10:02)
[2024-03-16] MEDS: SCOPOLAMINE 1 MG/72 HR PATCH TRANSDERM ONE (10:07)
[2024-03-16] MEDS: BUPIVACAINE (PF) 0.25% 30 ML VIAL SQ ONE ×2 (10:08→10:52)
[2024-03-16] MEDS ORDERED: MIDAZOLAM 2 MG/2 ML VIAL ONE (10:12)
[2024-03-16] MEDS ORDERED: PROPOFOL 10 MG/ML 20 ML VIAL IV ONE (10:12)
[2024-03-16] MEDS ORDERED: LIDOCAINE 1% INJ 10MG/ML (20 ML MDV) ONE (10:12)
[2024-03-16] MEDS ORDERED: fentaNYL (PF) 50 MCG/ML 2 ML AMP ONE (10:12)
[2024-03-16] MEDS ORDERED: HYDROmorphone (PF) 1 MG/ML ONE (10:12)
--- NOTE | 2024-03-16 11:08 | P.OP ---
Date of Procedure: 03/16/24 Preoperative Diagnosis: Internal derangement left knee Postoperative Diagnosis: 1. Tear medial and lateral meniscus left knee 2. Grade IV chondromalacia femoral sulcus left knee 3. Reactive synovitis medial, lateral and suprapatellar compartments left knee 4. Grade II chondromalacia medial femoral condyle left knee Procedure(s) Performed: 1. Arthroscopic partial medial and lateral meniscectomy left knee 2. Arthroscopic microfracture femoral sulcus left knee 3. Arthroscopic partial synovectomy medial, lateral and suprapatellar compartments left knee 4. Arthroscopic chondroplasty medial femoral condyle left knee Anesthesia: TOANA, local Surgeon: Sebas Hooper Estimated Blood Loss (ml): 6 Pathology: none sent Condition: stable Disposition: PACU Indications for Procedure: 48-year-old patient seen with progressive left knee pain. After having treatment options discussed, she elected to proceed with arthroscopy. Operative Findings: See description of procedure Description of Procedure: Patient was taken to the operative suite. Patient underwent a general anesthetic by the department of anesthesia. Patient was given preoperative antibiotics. The left lower extremity was placed in a well-padded arthroscopic leg barber. The left leg was prepped and draped in the normal sterile orthopedic fashion. A lateral parapatellar and suprapatellar incision was made. Trochars were inserted. Arthroscopy was initiated. Suprapatellar pouch revealed diffuse thick reactive synovitis. The patellofemoral joint appeared to articular congruently. There was grade I chondromalacia patella and an area of grade IV chondromalacia involving the femoral sulcus distally. The scope was guided into the medial gutter. No loose bodies or plica were identified. The scope was then guided into the medial compartment. A medial parapatellar incision was made. Trocar inserted followed by probe. There was a complex tear involving the posterior horn of the medial meniscus. There were grade II chondromalacia changes along the medial femoral condyle with osteochondral flap tears present. There was thick reactive synovitis anteriorly. I performed a partial medial meniscectomy getting down to stable meniscal tissue. I performed a chondroplasty of the medial femoral condyle getting down to stable osteochondral tissue. I performed a partial synovectomy decompressing the thick reactive synovitis anteriorly. The residual meniscus was probed and was found to be stable. The residual osteochondral surface appeared stable. There was good decompression of the synovitis. Scope and probe were then guided into the intercondylar notch. Cruciates were identified, probed and found to be stable. The scope and probe were then guided into lateral compartment. There was a radial tear involving the anterior horn of the lateral meniscus. There was no significant chondromalacia involving the lateral compartment. There was some thick reactive synovitis anteriorly. I performed a partial lateral meniscectomy getting down to stable meniscal tissue. I performed a partial synovectomy decompressing the thick reactive synovitis. The residual meniscus was stable. There was good decompression of the synovitis. The scope was in guided back into the suprapatellar compartment. I introduced a motorized shaver into the suprapatellar compartment and performed a partial synovectomy. There was good decompression of the synovitis. I now introduced a microfracture awl and performed a microfracture to the area of exposed bone along the femoral sulcus penetrating the bone with resultant bleeding at the microfracture site. The residual osteochondral surface was probed and was found to be stable. There was again good decompression of the synovitis within the suprapatellar compartment. I took 1 more look around the entire knee, no residual debris. Instruments were now removed from the joint. The joint was infiltrated with .25% Marcaine. Steri-Strips were applied to the portal sites. Sterile dressings were applied. The patient was placed into a DIPAK hose. No tourniquet was utilized. The patient was awakened, transferred to a bed and taken to recovery stable satisfactory condition.
[2024-03-16] MEDS: fentaNYL (PF) 50 MCG/ML 2 ML AMP IV PRN (11:22)
[2024-03-16] MEDS: KETOROLAC 15 MG/ML 1 ML VIAL IVP ONE (11:22)
[2024-03-16 11:44] VITALS: TEMP 98
[2024-03-16] MEDS ORDERED: HYDROcodone/APAP 5-325MG 1 EACH TAB ONE (12:24)
[2024-03-16] MEDS: HYDROcodone/APAP 5-325MG 1 EACH TAB PO ONE (12:27)
[2024-03-16 13:33] VITALS: BP 120/72; PULSE 78; RESP 16
== END 2024-03-16 13:07 | disposition home or self-care (01) ==
LOC: OR 09:32
PROVIDERS: ATTEND Orthopaedic Surgery
DX: S83.282A Other tear of lateral meniscus, current injury, left knee, initial encounter (principal); S83.242A Other tear of medial meniscus, current injury, left knee, initial encounter; I10 Essential (primary) hypertension; K21.9 Gastro-esophageal reflux disease without esophagitis; M22.42 Chondromalacia patellae, left knee; M65.162 Other infective (teno)synovitis, left knee; Z79.899 Other long term (current) drug therapy; Z79.1 Long term (current) use of non-steroidal anti-inflammatories (NSAID); X58.XXXA Exposure to other specified factors, initial encounter
CPT/HCPCS: 29880; 29879; J2250; J1100; J0690; J2405; J2001; J3010; J1170; J1885; J2704; J0665